=== PATIENT | male | born 1985 | race Caucasian/White ===

== ENCOUNTER 2020-11-09 21:06 | Emergency (ER) | payer OTHER ==
[2020-11-09] MEDS ORDERED: Ondansetron 4 MG/2 ML SDV IVPUSH ONE (21:45)
[2020-11-09] MEDS ORDERED: Sodium Chloride 0.9% 1,000 ML IV STA (21:45)
[2020-11-09] MEDS ORDERED: Sodium Chloride 0.9% 10 ML Syringe FLUSH PRN (21:45)
[2020-11-09] MEDS ORDERED: HYDROmorphone 0.5 MG/0.5 ML Syringe IVPUSH ONE (21:45)
--- NOTE | 2020-11-09 21:48 | EDM.PDOC ---
<Fred Garner - Last Filed: 11/10/20 05:02> ED HPI GENERAL MEDICAL PROBLEM - General Chief Complaint: General Stated Complaint: TYPE 2 DIABETIC/LT SIDE ABDOMINAL PAIN Time Seen by Provider: 11/09/20 21:28 - Related Data Allergies Allergy/AdvReac Type Severity Reaction Status Date / Time No Known Allergies Allergy Verified 11/09/20 21:34 Home Meds: Home Meds Dicyclomine [Bentyl] 10 mg PO TID PRN 11/09/20 [History] Dulaglutide [Trulicity] 0.5 ml SUBCUT WEEKLY 11/09/20 [History] Escitalopram [Lexapro] 10 mg PO DAILY 11/09/20 [History] Simvastatin 5 mg PO BEDTIME 11/09/20 [History] metFORMIN [Glucophage XR] 1,000 mg PO BID 11/09/20 [History] Course - Re-Assessments/Exams Free Text/Narrative Re-Assessment/Exam: 11/10/20 00:27 Two-view chest radiograph reviewed. Poor inspiratory effort. The cardiac silhouette is within normal limits. No pulmonary vascular congestion. No pleural effusions. No focal infiltrate, however, there is discoid atelectasis noted at the right base. No pneumothorax. Formal read per the Radiologist pending. Patient CBC is remarkable for leukocytopenia of 3.47 and thrombocytopenia of 124,000. His CMP is remarkable for mild hypokalemia of 3.3 and mild hyperglycemia of 128. His AST/ALT are elevated at 125/142, respectively, with the remainder of his C MP being unremarkable. His lipase level is within normal limits at 69. His CRP is elevated at 5.5. His swab for the SARS-CoV-2 virus has returned positive. 11/10/20 01:13 CT of the abdomen and pelvis with oral and IV contrast is read by [facility] as: 1. No acute intra-abdominal process identified. 2. Acute appearing bilateral lower lung infiltrates. Please clinically corre late for bilateral viral pneumonia. CT scan of the chest may be helpful for better evaluation. 11/10/20 01:17 Test results discussed with the patient. It appears that all of the patient's symptoms are likely due to COVID-19. Based on his elevated BMI, he is a candidate for treatment with EUA monoclonal antibody treatment. This was discussed at length with the patient. He had no preference of bamlanivimab or Regeneron. He will be given a fact sheet for patients and caregivers regarding bamlanivimab. I explained to him that the medicine is approved for emergency use authorization, and that it has not been fully approved by the FDA. I explained that there are potential risks of receiving the medication, including anaphylaxis and infusion related reactions, such as fever, chills, nausea, headache, bronchospasm, hypotension, angioedema, throat irritation, or rash, including urticaria, pruritus, myalgias, or dizziness. I also explained that there are other potential treatment options to treat COVID-19. All questions were answered, and the patient would like to proceed. The patient understands that the infusion will take about an hour, and that he will need to remain here in the ED for about 1 hour afterwards, to monitor for any potential adverse side effects. Departure - Departure Time of Disposition: 05:03 Disposition: Home, Self-Care 01 Condition: Good Clinical Impression: COVID-19 - Discharge Information *PRESCRIPTION DRUG MONITORING PROGRAM REVIEWED*: Not Applicable *COPY OF PRESCRIPTION DRUG MONITORING REPORT IN PATIENT LISETH: Not Applicable Instructions: COVID-19 Referrals: PCP,None [Primary Care Provider] - Forms: ED Department Discharge Additional Instructions: You were seen in the emergency room for left-sided abdominal pain, along with fever, cough, and nausea. Work-up in the ER included several blood tests, a swab for the macro SARS, a chest x-ray, and a CT of your abdomen and pelvis with oral and IV contrast. Your entire work-up was unremarkable, with the exception of your swab for the SARS-CoV-2 virus, which returned positive, indicating that you have COVID-19. You were treated with the experimental medicine bamlanivimab. This medicine is intended to decrease the likelihood of your developing serious symptoms from COVID-19. It is essential that you self-quarantine until you test negative, preferably twice. If any other problems, please do not hesitate to return to the ER. <Estephania Catalan - Last Filed: 11/10/20 11:13> ED HPI GENERAL MEDICAL PROBLEM - General Source of Information: Reports: Patient, RN Notes Reviewed History Limitations: Reports: No Limitations - History of Present Illness INITIAL COMMENTS - FREE TEXT/NARRATIVE: Patient is a 34-year-old male presenting to the emergency department with complaints of left lower quadrant abdominal pain radiating up into his left upper quadrant. Symptoms began Sunday and have been getting progressively worse since that time. He states last week he did have some fevers. He is also had a cough for the last week. States he is coughing up some greenish phlegm. Patient is type II diabetic states his blood sugars today were in the 150s. He does complain of nausea but is had no vomiting. States he has had a number of small loose bowel movements. Pt denies chest pain or SOB. Pt states that he has a hx of IBS and does change chronic diarrhea with occasional constipation. Left Abdomen Pain Score (Numeric/FACES): 8 Social & Family History - Tobacco Use Tobacco Use Status *Q: Never Tobacco User - Caffeine Use Caffeine Use: Reports: Soda - Recreational Drug Use Recreational Drug Use: No ED ROS GENERAL - Review of Systems Review Of Systems: See Below Constitutional: Reports: Fever. Denies: Weakness HEENT: Reports: No Symptoms Respiratory: Reports: Cough, Sputum. Denies: Shortness of Breath, Wheezing Cardiovascular: Reports: No Symptoms Endocrine: Reports: No Symptoms GI/Abdominal: Reports: Abdominal Pain (LLQ), Diarrhea, Nausea. Denies: Vomiting : Reports: No Symptoms Musculoskeletal: Reports: No Symptoms Skin: Reports: No Symptoms Neurological: Reports: No Symptoms Psychiatric: Reports: No Symptoms Hematologic/Lymphatic: Reports: No Symptoms Immunologic: Reports: No Symptoms ED EXAM, GENERAL - Physical Exam Exam: See Below General Appearance: Alert, WD/WN, No Apparent Distress Respiratory/Chest: No Respiratory Distress, Lungs Clear, Normal Breath Sounds, No Accessory Muscle Use, Chest Non-Tender Cardiovascular: Normal Peripheral Pulses, Regular Rate, Rhythm, No Edema, No Gallop, No JVD, No Murmur, No Rub GI/Abdominal: Normal Bowel Sounds, Soft, No Organomegaly, No Distention, No Abnormal Bruit, No Mass, Tender (Left lower quadrant) Neurological: Alert, Oriented, CN II-XII Intact, Normal Cognition, Normal Gait, Normal Reflexes, No Motor/Sensory Deficits Psychiatric: Normal Affect, Normal Mood Skin Exam: Warm, Dry, Intact, Normal Color, No Rash Course - Vital Signs Last Recorded V/S: Last Vital Signs Temp 99.3 F 11/09/20 21: Pulse 104 H 11/09/20 21:27 Resp 20 11/09/20 21:27 BP 145/84 H 11/09/20 21:27 Pulse Ox 96 11/09/20 21:27 - Orders/Labs/Meds Orders: Active Orders 24 hr Category Date Time Status Peripheral IV Insertion Adult [OM.PC] Stat Oth 11/09/20 21:44 Ordered Labs: Laboratory Tests 11/09/20 11/09/20 11/09/20 Range/Units 11:30 22:50 23:29 WBC 3.47 L (4.23-9.07) K/mm3 RBC 5.46 (4.63-6.08) M/mm3 Hgb 15.7 (13.7-17.5) gm/dl Hct 46.4 (40.1-51.0) % MCV 85.0 (79.0-92.2) fl MCH 28.8 (25.7-32.2) pg MCHC 33.8 (32.2-35.5) g/dl RDW Std Deviation 39.8 (35.1-43.9) fL Plt Count 124 L (163-337) K/mm3 MPV 11.6 (9.4-12.3) fl Neut % (Auto) 66.6 (34.0-67.9) % Lymph % (Auto) 26.2 (21.8-53.1) % Navarro % (Auto) 7.2 (5.3-12.2) % Eos % (Auto) 0 L (0.8-7.0) Baso % (Auto) 0.0 L (0.1-1.2) % Neut # (Auto) 2.31 (1.78-5.38) K/mm3 Lymph # (Auto) 0.91 L (1.32-3.57) K/mm3 Navarro # (Auto) 0.25 L (0.30-0.82) K/mm3 Eos # (Auto) 0.00 L (0.04-0.54) K/mm3 Baso # (Auto) 0.00 L (0.01-0.08) K/mm3 Sodium (136-145) mEq/L Potassium (3.5-5.1) mEq/L Chloride (98-107) mEq/L Carbon Dioxide (21-32) mEq/L Anion Gap (5-15) BUN (7-18) mg/dL Creatinine (0.7-1.3) mg/dL Est Cr Clr Drug Dosing mL/min Estimated GFR (MDRD) (>60) mL/min BUN/Creatinine Ratio (14-18) Glucose (74-106) mg/dL Calcium (8.5-10.1) mg/dL Total Bilirubin (0.2-1.0) mg/dL AST (15-37) U/L ALT (16-63) U/L Alkaline Phosphatase (46-116) U/L C-Reactive Protein (<1.0) mg/dL Total Protein (6.4-8.2) g/dl Albumin (3.4-5.0) g/dl Globulin gm/dL Albumin/Globulin Ratio (1-2) Lipase 69 L (73-393) U/L SARS-CoV-2 RNA (VINICIO) Positive H (NEGATIVE) 11/09/20 Range/Units 23:30 WBC (4.23-9.07) K/mm3 RBC (4.63-6.08) M/mm3 Hgb (13.7-17.5) gm/dl Hct (40.1-51.0) % MCV (79.0-92.2) fl MCH (25.7-32.2) pg MCHC (32.2-35.5) g/dl RDW Std Deviation (35.1-43.9) fL Plt Count (163-337) K/mm3 MPV (9.4-12.3) fl Neut % (Auto) (34.0-67.9) % Lymph % (Auto) (21.8-53.1) % Navarro % (Auto) (5.3-12.2) % Eos % (Auto) (0.8-7.0) Baso % (Auto) (0.1-1.2) % Neut # (Auto) (1.78-5.38) K/mm3 Lymph # (Auto) (1.32-3.57) K/mm3 Navarro # (Auto) (0.30-0.82) K/mm3 Eos # (Auto) (0.04-0.54) K/mm3 Baso # (Auto) (0.01-0.08) K/mm3 Sodium 138 (136-145) mEq/L Potassium 3.3 L (3.5-5.1) mEq/L Chloride 101 (98-107) mEq/L Carbon Dioxide 27 (21-32) mEq/L Anion Gap 13.3 (5-15) BUN 8 (7-18) mg/dL Creatinine 1.1 (0.7-1.3) mg/dL Est Cr Clr Drug Dosing 108.95 mL/min Estimated GFR (MDRD) > 60 (>60) mL/min BUN/Creatinine Ratio 7.3 L (14-18) Glucose 128 H (74-106) mg/dL Calcium 8.6 (8.5-10.1) mg/dL Total Bilirubin 0.9 (0.2-1.0) mg/dL AST 125 H (15-37) U/L ALT 142 H (16-63) U/L Alkaline Phosphatase 51 (46-116) U/L C-Reactive Protein 5.5 H* (<1.0) mg/dL Total Protein 7.6 (6.4-8.2) g/dl Albumin 3.5 (3.4-5.0) g/dl Globulin 4.1 gm/dL Albumin/Globulin Ratio 0.9 L (1-2) Lipase (73-393) U/L SARS-CoV-2 RNA (VINICIO) (NEGATIVE) Meds: Medications Discontinued Medications Generic Name Dose Route Start Last Admin Trade Name Freq PRN Reason Stop Dose Admin Diatrizoate Meglum/Diatrizoate Sod 120 ml 11/10/20 00:05 Gastrografin 37% PO 11/10/20 00:06 ONETIME ONE Diphenhydramine HCl 50 mg 11/10/20 01:21 Benadryl IVPUSH ONETIME PRN hypersensitivity reaction Epinephrine HCl 0.3 mg 11/10/20 01:21 Adrenalin IM 11/10/20 01:22 ONETIME ONE Famotidine 20 mg 11/10/20 01:21 Pepcid IVPUSH ONETIME PRN hypersensitivity reaction Hydromorphone HCl 0.5 mg 11/09/20 21:45 11/09/20 22:21 Dilaudid IVPUSH 11/09/20 21:46 0.5 mg ONETIME ONE Administration Sodium Chloride 1,000 mls @ 150 mls/hr 11/09/20 21:45 11/09/20 22:18 Normal Saline IV 11/10/20 04:24 150 mls/hr NOW STA Administration Bamlanivimab 700 mg/ Sodium 270 mls @ 270 mls/hr 11/10/20 01:21 11/10/20 02:19 Chloride IV 11/10/20 01:22 270 mls/hr ONETIME ONE Administration Protocol Iopamidol 100 ml 11/10/20 00:05 Isovue-300 (61%) IVPUSH 11/10/20 00:06 ONETIME ONE Methylprednisolone Sodium Succinate 125 mg 11/10/20 01:21 Solu-Medrol IVPUSH ONETIME PRN hypersensitivity reaction Ondansetron HCl 4 mg 11/09/20 21:45 11/09/20 22:19 Zofran IVPUSH 11/09/20 21:46 4 mg ONETIME ONE Administration Sodium Chloride 10 ml 11/09/20 21:45 11/09/20 22:20 Saline Flush FLUSH 10 ml ASDIRECTED PRN Administration Keep Vein Open Sodium Chloride 30 ml 11/10/20 01:30 Saline Flush FLUSH ASDIRECTED IVÁN - Re-Assessments/Exams Free Text/Narrative Re-Assessment/Exam: Patient is a 34-year-old male presenting to the emergency department with complaints of cough, fever, nausea, diarrhea, and left lower quadrant abdominal pain. Abdominal pain began this weekend. Cough and fever began last week. He is nauseous but has had no vomiting. He does have a harsh cough as well as sinus drainage. I have ordered a CBC, CMP, CRP, lipase, two-view chest x-ray, abdomen pelvis CT with contrast, and a 1 hour Covid test. 11/09/20 2333 Pt is feeling better after the medications given. He will go to CT soon. Case discussed with Dr. Garner. He will assume care and disposition of patient d/t end of shift. Sepsis Event Note (ED) - Evaluation Sepsis Screening Result: No Definite Risk - My Orders Last 24 Hours: My Active Orders 11/09/20 21:44 Peripheral IV Insertion Adult [OM.PC] Stat - Assessment/Plan Last 24 Hours: My Active Orders 11/09/20 21:44 Peripheral IV Insertion Adult [OM.PC] Stat
[2020-11-10] MEDS ORDERED: Diatrizoate Meglumine/Diatrizoate Sodium 37% 120 ML Bottle PO ONE (00:05)
[2020-11-10] MEDS ORDERED: Iopamidol 612 MG/ML 100 ML Bottle IVPUSH ONE (00:05)
[2020-11-10] MEDS ORDERED: Famotidine 20 MG/2 ML SDV IVPUSH PRN (01:21)
[2020-11-10] MEDS ORDERED: diphenhydrAMINE 50 MG/ML SDV IVPUSH PRN (01:21)
[2020-11-10] MEDS ORDERED: EPINEPHrine 1 MG/ML SDV IM ONE (01:21)
[2020-11-10] MEDS ORDERED: methylPREDNISolone Sodium Succinate 125 MG/2 ML SDV IVPUSH PRN (01:21)
[2020-11-10] MEDS ORDERED: Sodium Chloride 0.9% 10 ML Syringe FLUSH SCH (01:30)
--- NOTE | 2020-11-10 09:19 | CR ---
Chest: 2 views of the chest were obtained. Comparison: No prior chest imaging is available. Patchy areas of increased density identified within both lung bases. Upper lungs are grossly clear. Heart size and mediastinum are normal. Bony structures appear within normal limits for the patient's age. Impression: 1. Patchy areas of increased density within both lung bases. Findings most likely represent pneumonia. Please make sure patient is not COVID positive. Diagnostic code #3
--- NOTE | 2020-11-10 09:19 | CT ---
CT abdomen and pelvis Technique: Multiple axial sections were obtained from above the lung apices inferiorly through the abdomen and pelvis through the pubic symphysis. Oral contrast was given. Delayed images were obtained through the bladder. Reconstructed coronal and sagittal images were obtained. Findings: Patchy areas of increased density are identified within both lung bases. Diffuse fatty infiltration is noted throughout the liver. Spleen appears within normal limits. Adrenal glands showed no nodule. Pancreas shows no discrete abnormality. Gallbladder contains no calcified gallstones. Kidneys show no hydronephrosis or mass. Delayed images through the bladder show contrast excretion into both distal ureters and bladder. Aorta shows no aneurysm. No retroperitoneal adenopathy or mesenteric abnormalities are seen. Appendix is seen which is normal. No pelvic mass or adenopathy is identified. No free fluid or inflammatory change is appreciated. Bone window settings were reviewed which show no acute osseous finding. Incidental note of partial blocked vertebra at L4-5. Impression: 1. Patchy areas of increased density within both lung bases. Findings are compatible with pneumonia. Please correlate if patient has symptoms of COVID exposure. 2. Fatty infiltration within the liver. 3. No other acute abnormality is appreciated. Diagnostic code #3 I agree with preliminary report from [facility], finalized on 10/31/20, 2:02 AM [facility]HE[facility]
== END 2020-11-10 05:25 | disposition home or self-care (01) ==
LOC: JD.ED 21:06
DX: U07.1 COVID-19 (principal); R79.82 Elevated C-reactive protein (CRP)
CPT/HCPCS: 36415; 71046; 71046-26; 74177; 74177-26; 80053; 83690; 85025; 86140; 96374; 96375; 99284-25; J1170; J2405; J7030; J7050; M0239; Q9963; U0002